=== PATIENT | female | born 1980 | race Caucasian/White ===

== ENCOUNTER 2017-11-19 09:55 | Emergency (ER) | payer OTHER ==
[~2017-11-19] VITALS: Ht 157.5 cm; Wt 74.0 kg
[2017-11-19 09:56] VITALS: BP 121/78; PULSE 81; RESP 14; TEMP 98.4; O2SAT 97
[2017-11-19] MEDS ORDERED: RESP: ALBUTEROL 2.5 MG/IPRATROPIUM 0.5 MG NEB (SCH) INH ONE (10:30)
[2017-11-19] MEDS ORDERED: SODIUM CHLORIDE 0.9% FLUSH 10 ML FLUSH IVF PRN (10:30)
[2017-11-19] MEDS ORDERED: methylPREDNISolone SOD SUCC 125 MG/2 ML VIAL IV PUSH ONE (10:30)
--- NOTE | 2017-11-19 10:43 | PD ---
HPI Chief Complaint: Medical Clearance Time Seen by Provider: 10:26 Travel History International Travel<30 days: No Contact w/Intl Traveler<30days: No Traveled to known affect area: No History of Present Illness HPI The patient is a 37-year-old female who presents emergency department for cough and cold symptoms. The patient states she developed cough and cold symptoms with fever approximately 10 days ago. The patient was seen in urgent care and diagnosed with bronchitis. The patient was placed on prednisone for 3 days and doxycycline. The patient's fever resolved and she started to improve, however, she now notes increasing shortness of breath with chest tightness. The cough is mostly dry and nonproductive. She has been without a fever for several days. She does complain of mild nausea with 2 episodes of vomiting, however, notes a history of chronic nausea. 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 The patient denies any known history of coronary artery disease, cardiomyopathy, or PE. Patient also complains of numbness and tingling to the hands bilaterally since last night. The patient states she saw another physician several days ago and had blood work, was told it was negative. She also had an influenza screen that was negative. [facility] Past Medical History Narrative Medical Bronchitis ?: Not Past Surgical History Hysterectomy: Yes Social History Tobacco Use: No Allergies-Medications (Allergen,Severity, Reaction): Coded Allergies: codeine (Verified Allergy, Severe, Anaphylaxis, 11/19/17) metoclopramide (Verified Allergy, Unknown, 11/19/17) sumatriptan (Verified Allergy, Unknown, 11/19/17) Review of Systems Except as stated in HPI: all other systems reviewed are Neg General / Constitutional: Positive: Fever (fever 10 days ago which has resolved ) HENT: Positive: Congestion, No: Headaches, Lightheadedness Cardiovascular: Positive: Chest Pain or Discomfort Respiratory: Positive: Cough, Shortness of Breath Gastrointestinal: Positive: Nausea, Vomiting Neurologic: Positive: Paresthesia, Sensory Disturbance Psychiatric: Positive: Anxiety Physical Exam Narrative GENERAL: Awake, alert, nontoxic-appearing 37-year-old female who appears her stated age and is in no acute respiratory distress. SKIN: Focused skin assessment warm/dry. HEAD: Atraumatic. Normocephalic. EYES: Pupils equal and round. No scleral icterus. No injection or drainage. ENT: No nasal bleeding or discharge. Mucous membranes pink and moist. No erythema or exudate. TMs reveal scarring on the tympanic membranes bilateral but no erythema or bulging. NECK: Trachea midline. No JVD. CARDIOVASCULAR: Regular rate and rhythm. No murmur appreciated. RESPIRATORY: No accessory muscle use. Clear to auscultation. Breath sounds equal bilaterally. MUSCULOSKELETAL: No obvious deformities. No clubbing. No cyanosis. No edema. NEUROLOGICAL: Awake and alert. No obvious cranial nerve deficits. Motor grossly within normal limits. Normal speech. Nonfocal. PSYCHIATRIC: Appropriate mood and affect; insight and judgment normal. Pressure speech. Data Data Last Documented VS Vital Signs Date Time Temp Pulse Resp B/P (MAP) Pulse Ox O2 Delivery O2 Flow Rate FiO2 11/19/17 11:06 98 Room Air 11/19/17 09:56 98.4 81 14 Orders Orders Complete Blood Count With Diff (11/19/17 10:26) Comprehensive Metabolic Panel (11/19/17 10:26) B-Type Natriuretic Peptide (11/19/17 10:26) Magnesium (Mg) (11/19/17 10:26) Ckmb (Isoenzyme) Profile (11/19/17 10:26) Troponin I (11/19/17 10:26) Iv Access Insert/Monitor (11/19/17 10:26) Electrocardiogram (11/19/17 10:26) Ecg Monitoring (11/19/17 10:26) Oximetry (11/19/17 10:26) Oxygen Administration (11/19/17 10:26) Chest, Single Ap (11/19/17 10:26) Sodium Chloride 0.9% Flush (Ns Flush) (11/19/17 10:30) Methylprednisolone So Succ Inj (Solumedr (11/19/17 10:30) Albuterol-Ipratropium Neb (Duoneb Neb) (11/19/17 10:30) CKMB (11/19/17 10:55) CKMB% (11/19/17 10:55) Labs Laboratory Tests Test 11/19/17 10:55 White Blood Count 7.7 TH/MM3 Red Blood Count 4.22 MIL/MM3 Hemoglobin 13.1 GM/DL Hematocrit 38.0 % Mean Corpuscular Volume 90.0 FL Mean Corpuscular Hemoglobin 31.1 PG Mean Corpuscular Hemoglobin Concent 34.5 % Red Cell Distribution Width 12.9 % Platelet Count 263 TH/MM3 Mean Platelet Volume 7.8 FL Neutrophils (%) (Auto) 58.3 % Lymphocytes (%) (Auto) 31.5 % Monocytes (%) (Auto) 8.1 % Eosinophils (%) (Auto) 1.5 % Basophils (%) (Auto) 0.6 % Neutrophils # (Auto) 4.5 TH/MM3 Lymphocytes # (Auto) 2.4 TH/MM3 Monocytes # (Auto) 0.6 TH/MM3 Eosinophils # (Auto) 0.1 TH/MM3 Basophils # (Auto) 0.0 TH/MM3 CBC Comment DIFF FINAL Differential Comment Blood Urea Nitrogen 11 MG/DL Creatinine 0.66 MG/DL Random Glucose 84 MG/DL Total Protein 6.8 GM/DL Albumin 3.5 GM/DL Calcium Level 8.7 MG/DL Magnesium Level 2.2 MG/DL Alkaline Phosphatase 35 U/L Aspartate Amino Transf (AST/SGOT) 42 U/L Alanine Aminotransferase (ALT/SGPT) 37 U/L Total Bilirubin 0.8 MG/DL Sodium Level 137 MEQ/L Potassium Level 4.8 MEQ/L Chloride Level 107 MEQ/L Carbon Dioxide Level 23.9 MEQ/L Anion Gap 6 MEQ/L Estimat Glomerular Filtration Rate 102 ML/MIN Total Creatine Kinase 117 U/L Troponin I LESS THAN 0.02 NG/ML B-Type Natriuretic Peptide 5 PG/ML MDM Medical Decision Making Medical Screen Exam Complete: Yes Emergency Medical Condition: Yes Medical Record Reviewed: Yes Interpretation(s) EKG reveals normal sinus rhythm with a rate of 69. No ischemic changes or ectopy noted. Laboratory Tests Test 11/19/17 10:55 White Blood Count 7.7 TH/MM3 Red Blood Count 4.22 MIL/MM3 Hemoglobin 13.1 GM/DL Hematocrit 38.0 % Mean Corpuscular Volume 90.0 FL Mean Corpuscular Hemoglobin 31.1 PG Mean Corpuscular Hemoglobin Concent 34.5 % Red Cell Distribution Width 12.9 % Platelet Count 263 TH/MM3 Mean Platelet Volume 7.8 FL Neutrophils (%) (Auto) 58.3 % Lymphocytes (%) (Auto) 31.5 % Monocytes (%) (Auto) 8.1 % Eosinophils (%) (Auto) 1.5 % Basophils (%) (Auto) 0.6 % Neutrophils # (Auto) 4.5 TH/MM3 Lymphocytes # (Auto) 2.4 TH/MM3 Monocytes # (Auto) 0.6 TH/MM3 Eosinophils # (Auto) 0.1 TH/MM3 Basophils # (Auto) 0.0 TH/MM3 CBC Comment DIFF FINAL Differential Comment Blood Urea Nitrogen 11 MG/DL Creatinine 0.66 MG/DL Random Glucose 84 MG/DL Total Protein 6.8 GM/DL Albumin 3.5 GM/DL Calcium Level 8.7 MG/DL Magnesium Level 2.2 MG/DL Alkaline Phosphatase 35 U/L Aspartate Amino Transf (AST/SGOT) 42 U/L Alanine Aminotransferase (ALT/SGPT) 37 U/L Total Bilirubin 0.8 MG/DL Sodium Level 137 MEQ/L Potassium Level 4.8 MEQ/L Chloride Level 107 MEQ/L Carbon Dioxide Level 23.9 MEQ/L Anion Gap 6 MEQ/L Estimat Glomerular Filtration Rate 102 ML/MIN Total Creatine Kinase 117 U/L Troponin I LESS THAN 0.02 NG/ML B-Type Natriuretic Peptide 5 PG/ML Chest x-ray reveals no acute disease Differential Diagnosis Differential diagnosis includes bronchitis, reactive airway disease, cardiomyopathy, congestive heart failure, pleural effusion, pulmonary edema, pulmonary embolism, anxiety. Narrative Course IV was established, labs are drawn and sent, and the patient was placed on cardiac telemetry monitoring and continuous pulse oximetry monitoring. EKG was ordered and interpreted. Chest x-ray was obtained. BNP was sent to lab. The patient was administered Solu-Medrol and DuoNeb. Chest x-ray unremarkable. BNP is normal. Troponin and CPK are unremarkable. EKG is unremarkable. The patient will be placed on a Medrol Dosepak and albuterol inhaler. She is advised to follow-up with her primary physician. She will be provided a copy of her labs, EKG, chest x-ray results at discharge. Diagnosis Primary Impression: Bronchitis Patient Instructions: General Instructions Additional Instructions: Medications as directed. Please provide the patient copy of her EKG, chest x- ray results, and lab results at discharge. Follow-up with your primary physician. Return if symptoms worsen or progress. Med/Other Pt SpecificInfo: Prescription(s) given Scripts Albuterol 8.5 GM Inh (Proair Hfa 8.5 GM Inh) 90 Mcg/Act Aer 2 PUFF INH Q6H Y for SHORTNESS OF BREATH, #1 INHALER 0 Refills 108 mcg/actuation Prov: Mg Ferrera MD 11/19/17 Methylprednisolone Dosepak (Medrol Dosepak) 4 Mg Dspk 4 MG PO DIRECTED, #1 DSPK 0 Refills Per Pharmacist direction Prov: Mg Ferrera MD 11/19/17 Disposition: 01 DISCHARGE HOME Condition: Stable Mg Ferrera MD Nov 19, 2017 10:43
--- NOTE | 2017-11-19 10:48 | RADRPT ---
EXAM DATE/TIME: 11/19/2017 10:31 [facility] COMPARISON: No previous studies available for comparison. INDICATIONS : Short of breath, cough and cold symptoms for 11 days, symptoms persist after treatment MEDICAL HISTORY : None. SURGICAL HISTORY : None. ENCOUNTER: Initial ACUITY: 1 week PAIN SCORE: 0/10 LOCATION: Bilateral chest FINDINGS: A single view of the chest demonstrates the lungs to be symmetrically aerated without evidence of mas s, infiltrate or effusion. The cardiomediastinal contours are unremarkable. Osseous structures are intact. CONCLUSION: No acute disease. Tucker Cueto MD FACR on November 19, 2017 at 10:46 Board Certified Radiologist. This report was verified electronically.
[2017-11-19 11:06] VITALS: O2SAT 98
[2017-11-19 11:17] LABS: AUTOMATED NEUTROPHIL # 4.5 TH/MM3 (1.8-7.7); BASOPHIL % 0.6 % (0.0-2.0); EOSINOPHIL # 0.1 TH/MM3 (0-0.4); EOSINOPHIL % 1.5 % (0.0-4.0); HEMOGLOBIN 13.1 GM/DL (11.6-15.3); LYMPH % 31.5 % (9.0-44.0); LYMPHOCYTE # 2.4 TH/MM3 (1.0-4.8); MEAN CORPUSCULAR HEMOGLOBIN 31.1 PG (27.0-34.0); MEAN CORPUSCULAR HGB CONC 34.5 % (32.0-36.0); MEAN PLATELET VOLUME 7.8 FL (7.0-11.0); MONO % 8.1 % (0.0-8.0); MONOCYTE # 0.6 TH/MM3 (0-0.9); NEUT % 58.3 % (16.0-70.0); PLATELET COUNT 263 TH/MM3 (150-450); RED BLOOD COUNT 4.22 MIL/MM3 (4.00-5.30); RED CELL DISTRIBUTION WIDTH 12.9 % (11.6-17.2); WHITE BLOOD COUNT 7.7 TH/MM3 (4.0-11.0)
[2017-11-19 11:47] LABS: ALBUMIN 3.5 GM/DL (3.4-5.0); ALKALINE PHOSPHATASE 35 U/L (45-117); ALT (GPT) 37 U/L (10-53); AST (GOT) 42 U/L (15-37); BICARBONATE 23.9 MEQ/L (21.0-32.0); BLOOD UREA NITROGEN 11 MG/DL (7-18); CALCIUM 8.7 MG/DL (8.5-10.1); CHLORIDE 107 MEQ/L (98-107); CREATININE 0.66 MG/DL (0.50-1.00); GLOMERULAR FILTRATION RATE 102 ML/MIN (>89); GLUCOSE,RANDOM 84 MG/DL (74-106); MAGNESIUM 2.2 MG/DL (1.5-2.5); SODIUM (NA) 137 MEQ/L (136-145); TOTAL BILIRUBIN ADULT 0.8 MG/DL (0.2-1.0); TOTAL PROTEIN 6.8 GM/DL (6.4-8.2); TROPONIN I LESS THAN 0.02 NG/ML (0.02-0.05)
[2017-11-19] MEDS ORDERED: ALBUAER3 INH (12:07)
[2017-11-19] MEDS ORDERED: MEDR4PAK PO (12:07)
[2017-11-19 12:41] VITALS: BP 126/72
--- NOTE | 2017-11-20 18:23 | EKG ---
Date Performed: 11/19/2017 Time Performed: 10:51:37 PTAGE: 37 years EKG: Sinus rhythm NORMAL ECG INTERPRETATION BASED ON A DEFAULT AGE OF 42 YEARS NO PREVIOUS TRACING DOCTOR: Santiago Cherry Interpretating Date/Time 11/20/2017 18:21:13
== END 2017-11-19 12:42 | disposition home or self-care (01) ==
LOC: NEPD 09:55
DX: J40 Bronchitis, not specified as acute or chronic (principal); Z88.5 Allergy status to narcotic agent; Z88.8 Allergy status to other drugs, medicaments and biological substances
CPT/HCPCS: 71045; 80053; 82550; 82552; 83735; 83880; 84484; 85025; 93005; 94664; 96374; 99285; J2930